=== PATIENT | male | born 1980 | race Caucasian/White ===

== ENCOUNTER 2017-10-14 20:15 | Emergency (ER) | payer OTHER ==
[2017-10-14] MEDS ORDERED: Ibuprofen TAB* 400 MG PO ONE (22:22)
--- NOTE | 2017-10-14 22:54 | ED ---
Upper Extremity Pain - HPI Summary HPI Summary: Patient here with right shoulder pain after falling onto this during earlier this evening around 19:45. Has pain in shoulder with movement. Tried ice for 20 minutes prior to arrival otherwise has not had anything else for pain. Denies numbness tingling or weakness. No previous injuries here. Denies head injury, neck injury and no loss of consciousness, no BEYER. He is otherwise healthy. - History of Current Complaint Chief Complaint: EDShoulderClavicRoel Stated Complaint: RT SHOULDER INJURY Time Seen by Provider: 10/14/17 21:18 Hx Obtained From: Patient, Family/Shoe Cobbler - female and male friends accompany him - Allergies/Home Medications Allergies/Adverse Reactions: Allergies Allergy/AdvReac Type Severity Reaction Status Date / Time No Known Allergies Allergy Verified 10/14/17 20:18 PMH/Surg Hx/FS Hx/Imm Hx Previously Healthy: Yes Endocrine/Hematology History: Denies: Hx Anticoagulant Therapy, Hx Blood Disorders Infectious Disease History: No Infectious Disease History: Denies: Traveled Outside the [place] in Last 30 Days - Social History Lives: With Family Alcohol Use: Weekly Hx Substance Use: No Substance Use Type: Reports: None Hx Tobacco Use: No Smoking Status (MU): Never Smoked Tobacco Review of Systems Constitutional: Negative Negative: Fatigue Eyes: Negative Negative: Photophobia, Blurred Vision, Diplopia ENT: Negative Negative: Epistaxis, Dental Pain Cardiovascular: Negative Negative: Chest Pain Respiratory: Negative Negative: Shortness Of Breath Gastrointestinal: Negative Positive: no symptoms reported Positive: Arthralgia, Myalgia, Decreased ROM Skin: Negative Neurological: Negative Psychological: Normal All Other Systems Reviewed And Are Negative: Yes Physical Exam Triage Information Reviewed: Yes Vital Signs On Initial Exam: Initial Vitals Temp Pulse Resp BP Pulse Ox 97 F 60 16 135/76 100 10/14/17 20:17 10/14/17 20:17 10/14/17 20:17 10/14/17 20:17 10/14/17 20:17 Vital Signs Reviewed: Yes Appearance: Positive: Well-Appearing, Well-Nourished, Pain Distress - mild - resting seated on stretcher w/ arm in sling Skin: Positive: Warm, Skin Color Reflects Adequate Perfusion, Dry - No erythema , no ecchymosis, no tenting over affected area and right shoulder Head/Face: Positive: Normal Head/Face Inspection - Atraumatic Eyes: Positive: Normal, EOMI, REA, Conjunctiva Clear ENT: Positive: Pharynx normal - Mucosa moist Neck: Positive: Supple, Nontender - Full range of motion without restriction or pain Respiratory/Lung Sounds: Positive: Breath Sounds Present. Negative: Tracheal Deviation Cardiovascular: Positive: Normal, Pulses are Symmetrical in both Upper and Lower Extremities Abdomen Description: Positive: Nontender, Soft Musculoskeletal: Positive: Strength/ROM Intact - Right material attendant strength with intact , limited elbow range of motion due to shoulder immobility and sling;, Pain @ - Right before meals joint with tenderness to palpation - mild edema compared to left however no gross deformity Neurological: Positive: Normal, Sensory/Motor Intact, Alert, Oriented to Person Place, Time, CN Intact II-III Psychiatric: Positive: Normal Diagnostics - Vital Signs Vital Signs Temp Pulse Resp BP Pulse Ox 10/14/17 20:17 97 F 60 16 135/76 100 - Laboratory Lab Statement: Any lab studies that have been ordered have been reviewed, and results considered in the medical decision making process. Course/Dx - Course Course Of Treatment: X-ray: (wet read) gapping between acromion process and lateral clavicle at the AC joint. Suspect AC joint separation. No fracture or effusion; no displacement of humeral head observed. - Diagnoses Provider Diagnoses: Separation of right acromioclavicular joint Discharge - Discharge Plan Condition: Stable Disposition: HOME Prescriptions: Ibuprofen TAB* [Motrin TAB* 800 MG] 800 mg PO Q8HR PRN #20 tab PRN Reason: Pain Patient Education Materials: Acromioclavicular Separation (ED), How to Use a Sling (ED) Forms: *School Release Referrals: Vinicius Marks MD [Medical Doctor] - Additional Instructions: Rest, ice, keep arm supported in sling and take ibuprofen with food as needed for pain Follow up with orthopedics this week. Call Tuesday to schedule an appointment. Avoid activities or use of this arm until seen by orthopedics to prevent further injury and pain. *If in the meantime you develop numbness, tingling or weakness or change in skin color/temperature, return to the emergency department
[2017-10-14 23:41] VITALS: BP 131/70
--- NOTE | 2017-10-15 07:41 | RAD ---
INDICATION: Right shoulder pain after a fall COMPARISON: None. TECHNIQUE: 4 views of the right shoulder were obtained. FINDINGS: At the right acromioclavicular joint there is mild pathologic widening measuring 7 mm in distance. The distal right clavicle is elevated relative to the acromion slightly less than 1 with of the bone. The visualized bones are otherwise intact and adequately aligned. IMPRESSION: RADIOGRAPHIC FINDINGS ARE CONSISTENT WITH A RAJINDER CLASSIFICATION TYPE III ACROMIOCLAVICULAR JOINT SEPARATION.
== END 2017-10-14 23:41 | disposition home or self-care (01) ==
LOC: ED 20:15
DX: S43.101A Unspecified dislocation of right acromioclavicular joint, initial encounter (principal); W19.XXXA Unspecified fall, initial encounter; Y93.75 Activity, martial arts; Y92.9 Unspecified place or not applicable
CPT/HCPCS: 99282; A9270-GY